=== PATIENT | female | born 1935 | race Caucasian/White ===

== ENCOUNTER 2021-03-17 12:45 | Inpatient (IN) | payer MEDICARE ==
[~2021-03-17] VITALS: Ht 157.5 cm; Wt 79.3 kg
[2021-03-17 13:15] LABS: BASOPHILS ABSOLUTE AUTO 0.07 K/mm3 (0.00-0.23); BASOPHILS PERCENT AUTO 1 % (0-2); EOSINOPHILS ABSOLUTE AUTO 0.07 K/mm3 (0.00-0.68); EOSINOPHILS PERCENT AUTO 1 % (0-6); Hematocrit 37.8 % (33.0-51.0); IMMATURE GRAN ABSOLUTE AUTO 0.04 K/mm3 (0.00-0.10); IMMATURE GRAN PERCENT AUTO 0 % (0-1); LYMPHOCYTES ABSOLUTE AUTO 0.89 K/mm3 (0.84-5.20); LYMPHOCYTES PERCENT AUTO 9 % (21-46); MONOCYTES ABSOLUTE AUTO 1.09 K/mm3 (0.16-1.47); MONOCYTES PERCENT AUTO 11 % (4-13); Mean Corpuscular HGB 21.9 pg (26.0-34.0); Mean Corpuscular HGB Conc 29.1 g/dL (31.5-36.5); Mean Corpuscular Volume 75 fL (80-100); Mean Platelet Volume 9.2 fL (9.1-12.4); NEUTROPHILS ABSOLUTE AUTO 7.47 K/mm3 (1.96-9.15); NEUTROPHILS PERCENT AUTO 78 % (41-73); Platelet Count 275 K/mm3 (150-400); RDW Coefficient Variation 15.9 % (11.7-14.2); RDW Standard Deviation 43.2 fL (35.1-46.3); Red Blood Cell Count 5.02 M/mm3 (3.80-5.20); White Blood Cell Count 9.63 K/mm3 (4.00-11.30)
[2021-03-17 13:51] LABS: Alanine Aminotransfer (ALT/SGP 24 U/L (12-78); Albumin, Blood 3.6 g/dL (3.4-5.0); Alk Phos 81 U/L (50-136); Anion Gap 7 mmol/L (6-16); Aspartate Aminotrans (AST/SGOT 23 U/L (12-37); Blood Urea Nitrogen 22 mg/dL (8-24); Bun/Creatinine Ratio 27.4 (12.0-20.0); CO2, Blood 25 mmol/L (21-32); Calcium, Blood 8.7 mg/dL (8.5-10.1); Chloride, Blood 109 mmol/L (98-108); Globulin, Blood 3.6 g/dL (2.2-4.0); Glomerular Filtration Rate >60 (60-); Glucose, Blood 120 mg/dL (70-99); Potassium, Blood 3.4 mmol/L (3.5-5.5); Sodium, Blood 141 mmol/L (136-145); Total Protein, Blood 7.2 g/dL (6.4-8.2); Troponin I 0.055 ng/mL (0.000-0.040)
[2021-03-17 15:57] LABS: Magnesium, Blood 2.4 mg/dL (1.6-2.4); Thyroid Stimulating Hormone 3.21 uIU/mL (0.360-4.800)
[2021-03-17 15:58] LABS: Source, Urine Clean Catch
[2021-03-17 16:01] LABS: Bilirubin, Urine Neg (Neg); Blood, Urine 4+ (Neg); Color, Urine Yellow (P-Yellow); Glucose Qualitative, Urine Neg (Neg); Ketones, Urine 1+ (Neg); Leukocyte Esterase, Urine 1+ (Neg); Nitrite, Urine Neg (Neg); Protein, Urine 3+ (Neg); Urobilinogen, Urine 2+ (Normal)
[2021-03-17 17:31] LABS: Appearance, Urine Hazy (Clear)
[2021-03-17 17:34] LABS: Bacteria Few /hpf; Squamous Epithelial Cells Few /hpf (Few)
[2021-03-17 17:35] LABS: Calcium Oxalate Crystals Many /hpf
[2021-03-17 17:53] LABS: SARS-Cov-2 (COVID-19) PCR, MMC NEGATIVE (NEGATIVE)
[2021-03-17 18:34] LABS: International Normalized Ratio 1.2; Prothrombin Time Results 12.8 Sec (9.7-11.5)
--- NOTE | 2021-03-17 23:25 | NUR ---
CALLED DR SANCHEZ REGARDING PT BEING VERY DISORIENTED AND PULLING ON LINES, GETTING OUT OF BED. ORDERS ENTERED IN EMAR.
--- NOTE | 2021-03-17 23:34 | NUR ---
PT WANTED TO CALL AND SPOKE TO HIM. SHE ASKED HIM TO COME AND WAS AGITATED AT HIM.
[2021-03-18 04:21] LABS: BASOPHILS ABSOLUTE AUTO 0.04 K/mm3 (0.00-0.23); BASOPHILS PERCENT AUTO 0 % (0-2); EOSINOPHILS ABSOLUTE AUTO 0.01 K/mm3 (0.00-0.68); EOSINOPHILS PERCENT AUTO 0 % (0-6); Hematocrit 37.4 % (33.0-51.0); IMMATURE GRAN ABSOLUTE AUTO 0.05 K/mm3 (0.00-0.10); IMMATURE GRAN PERCENT AUTO 1 % (0-1); LYMPHOCYTES ABSOLUTE AUTO 0.89 K/mm3 (0.84-5.20); LYMPHOCYTES PERCENT AUTO 8 % (21-46); MONOCYTES ABSOLUTE AUTO 0.94 K/mm3 (0.16-1.47); MONOCYTES PERCENT AUTO 9 % (4-13); Mean Corpuscular HGB 22.4 pg (26.0-34.0); Mean Corpuscular HGB Conc 29.4 g/dL (31.5-36.5); Mean Corpuscular Volume 76 fL (80-100); Mean Platelet Volume 9.6 fL (9.1-12.4); NEUTROPHILS ABSOLUTE AUTO 8.63 K/mm3 (1.96-9.15); NEUTROPHILS PERCENT AUTO 82 % (41-73); Platelet Count 267 K/mm3 (150-400); RDW Standard Deviation 43.8 fL (35.1-46.3); Red Blood Cell Count 4.92 M/mm3 (3.80-5.20); White Blood Cell Count 10.56 K/mm3 (4.00-11.30)
[2021-03-18 04:45] LABS: Alanine Aminotransfer (ALT/SGP 27 U/L (12-78); Albumin, Blood 3.5 g/dL (3.4-5.0); Alk Phos 84 U/L (50-136); Anion Gap 7 mmol/L (6-16); Aspartate Aminotrans (AST/SGOT 27 U/L (12-37); Bilirubin, Total 1.1 mg/dL (0.1-1.0); Blood Urea Nitrogen 24 mg/dL (8-24); Bun/Creatinine Ratio 27.6 (12.0-20.0); CO2, Blood 25 mmol/L (21-32); Calcium, Blood 8.9 mg/dL (8.5-10.1); Chloride, Blood 109 mmol/L (98-108); Creatinine, Blood 0.87 mg/dL (0.40-1.00); Globulin, Blood 3.4 g/dL (2.2-4.0); Glomerular Filtration Rate >60 (60-); Glucose, Blood 125 mg/dL (70-99); Magnesium, Blood 2.2 mg/dL (1.6-2.4); Potassium, Blood 3.3 mmol/L (3.5-5.5); Sodium, Blood 141 mmol/L (136-145); Total Protein, Blood 6.9 g/dL (6.4-8.2)
--- NOTE | 2021-03-18 06:47 | NUR ---
SHIFT SUMMARY PT IS ALERT BUT DISORIENTED. PT HAS BEEN AGITATED, CONFUSED, TRYING TO GET OUT OF BED AND TAKE OUT LINES, REFUSING CARE, DESPITE FAMILY BEING AT BEDSIDE. HEPARIN IS RINING AT THE MOMENT. PT IS ABLE TO USE BSC ON SBA. DAUGHTER AND HAVE BEEN AT BEDSIDE SINCE A LITTLE AFTER MIDNIGHT. PT HAS HAD VERY LITLLE SLEEP OF APPROX 30 MINS T/O NIGHT. FAMILY REPORTS THIS TYPE OF EPISODE PETER[[ENED BEFORE.
--- NOTE | 2021-03-18 15:00 | NUR ---
Echocardiogram completed.
--- NOTE | 2021-03-18 18:37 | NUR ---
SHIFT SUMMARY PT A&Ox2; PLEASANTLY CONFUSED DURING SHIFT. IMPULSIVE, SETTING OFF BED/CHAIR ALARM; FAMILY AT BEDSIDE T/O SHIFT AND ASSISTING WITH REDIRECTION AND ORIENTATION. PT DENIES PAIN, CHEST PAIN, SOB, NAUSEA AND DIZZINES/ SPO2 >90% ON RA T/O SHIFT. PT RECEIVING IV LASIX. ELEVATED BP, NOTIFEID DR CEJA T/O SHIFT, TRENDING DOWN WITH PRN LABATOLOL IV. PER TELE AFIB 90-100; OTHER VSS. NO OTHER ACUTE CHANGES NOTED. WILL CONTINUE TO MONITOR UNITL REPORT GIVEN TO ONCOMING RN.
[2021-03-18 20:16] LABS: Creatinine, Urine Random 11.2 mg/dL (27.00-270.00); Protein, Urine Random 5.1 mg/dL (0.0-11.9); Protein/Creat Ratio, Ur Random 0.5
[2021-03-19 04:17] LABS: BASOPHILS ABSOLUTE AUTO 0.04 K/mm3 (0.00-0.23); BASOPHILS PERCENT AUTO 0 % (0-2); EOSINOPHILS ABSOLUTE AUTO 0.02 K/mm3 (0.00-0.68); EOSINOPHILS PERCENT AUTO 0 % (0-6); Hemoglobin 10.7 g/dL (11.5-16.0); IMMATURE GRAN ABSOLUTE AUTO 0.06 K/mm3 (0.00-0.10); IMMATURE GRAN PERCENT AUTO 1 % (0-1); LYMPHOCYTES ABSOLUTE AUTO 0.99 K/mm3 (0.84-5.20); LYMPHOCYTES PERCENT AUTO 10 % (21-46); MONOCYTES ABSOLUTE AUTO 0.99 K/mm3 (0.16-1.47); MONOCYTES PERCENT AUTO 10 % (4-13); Mean Corpuscular HGB 21.6 pg (26.0-34.0); Mean Corpuscular HGB Conc 28.9 g/dL (31.5-36.5); Mean Corpuscular Volume 75 fL (80-100); Mean Platelet Volume 9.8 fL (9.1-12.4); NEUTROPHILS ABSOLUTE AUTO 8.29 K/mm3 (1.96-9.15); NEUTROPHILS PERCENT AUTO 80 % (41-73); Platelet Count 260 K/mm3 (150-400); RDW Coefficient Variation 16.1 % (11.7-14.2); RDW Standard Deviation 43.3 fL (35.1-46.3); Red Blood Cell Count 4.96 M/mm3 (3.80-5.20); White Blood Cell Count 10.39 K/mm3 (4.00-11.30)
[2021-03-19 04:32] LABS: Albumin, Blood 3.3 g/dL (3.4-5.0); Albumin/Globulin Ratio 1.1 (0.8-1.8); Bilirubin, Total 1.1 mg/dL (0.1-1.0); Bun/Creatinine Ratio 27.5 (12.0-20.0); Calcium, Blood 8.2 mg/dL (8.5-10.1); Creatinine, Blood 1.09 mg/dL (0.40-1.00); Globulin, Blood 2.9 g/dL (2.2-4.0); Potassium, Blood 3.4 mmol/L (3.5-5.5); Total Protein, Blood 6.2 g/dL (6.4-8.2)
--- NOTE | 2021-03-19 05:06 | NUR ---
SHIFT SUMMARY: PT PLEASANTLY CONFUSED THROUGHOUT NIGHT. PT COOPERATIVE WITH CARE AND FOLLOWING DIRECTIONS WHEN ASKED. PT FORGETFUL ABOUT CALL LIGHT AND FREQ GETTING OUT OF BED SETTING OFF BED ALARM. PT ABLE TO SLEEP SOME OF SHIFT. AWAKE AT 0500 AND WANTING TO ROAM AROUND ROOM. PT CURRENTLY SITTING UP IN CHAIR. POTASSIUM ORDER COMPLETE. VS WNL. PT REMAINS ON RA. A/FIB IN 80'S PER TELE. PT DENIES CP, DENIES SOB. AMBULATING WITH SBA. VOIDING IN BSC.
[2021-03-19 05:40] LABS: BASOPHILS PERCENT MAN 0 % (0-2); EOSINOPHILS PERCENT MAN 0 % (0-6); LYMPHOCYTES ABSOLUTE MAN 2.07 K/mm3 (0.84-5.20); LYMPHOCYTES PERCENT MAN 20 % (21-46); MONOCYTES PERCENT MAN 0 % (4-13); NEUTROPHILS ABSOLUTE MAN 8.31 K/mm3 (1.96-9.15); SEG NEUTROPHILS PERCENT MAN 80 % (41-73); TOTAL CELLS COUNTED 25
[2021-03-19] MEDS ORDERED: POTA20LUD PO (12:58)
[2021-03-19] MEDS ORDERED: FURO40 PO (12:59)
[2021-03-19] MEDS ORDERED: METO25 PO (13:00)
[2021-03-19] MEDS ORDERED: XARELTO15 MG PO (13:01)
[2021-03-19] MEDS ORDERED: SPIR25 PO (13:01)
[2021-03-19] MEDS ORDERED: TRAZ50 PO (13:03)
--- NOTE | 2021-03-19 16:28 | NUR ---
DISCHARGE SUMMARY PT A&Ox2; PLEASANTLY CONFUSED; CALM AND COOPERATIVE WITH CARE. PT UP TO BATHROOM WITH SBA AND WALKER. PT DENIES PAIN, CHEST PAIN, NAUSEA, SOB AND DIZZINESS T/O SHIFT. IV KCL ORDERS, CLARIFIED ORDERS FOR IV; NEW ORDER FOR KCL ELIXIR. PT RECEIVED PO POTASSIUM THSI AM, PT RECEIVING IV LASIX. ELEVATED BP THIS AM, TRENDING DOWN. OTHER VSS. NO OTHER ACUTE CHANGES NOTED. PLANS TO DISCHARGE, PT RECOMMENDING HOME HEALTH, NOTIFIED DR CEJA, NEW ORDERS FOR HOME HEALTH ON DISCHARGE. PT REQUESTING [facility]; NOTIFIED ROMELIA IN CARE MANAGEMENT. PT, SPOUSE AND DAUGHTER EDUCATED ON DISCHARGE INSTRUCTIONS, FOLLOW UP APPOINTMENTS, MEDICATIONS AND DIETARY/LIFESTYLE CHANGES. EDUCATED FAMILY ON CONGESTIVE HEART FAILURE AND PROVIDED A DAILY CHECKLIST AND LIVING WITH CHF. DAUGHTER AND SPOUSE EXPRESSED UNDERSTAND OF DISCHARGE TEACHING. PRESCRIPTIONS SEND TO [employer] IN [place] PER FAMILY REQUEST. PT LEFT WITH FAMILY AND YARN HAND[employer]ER VIA WHEELCHAIR AT 1538.
== END 2021-03-19 15:40 | disposition home or self-care (01) | DRG 280 ==
LOC: ER 12:45 → PCU 17:37
PROVIDERS: Family Medicine; Physician Assistant; ADMIT Hospitalist
DX: I11.0 Hypertensive heart disease with heart failure (principal); I21.A1 Myocardial infarction type 2; I50.31 Acute diastolic (congestive) heart failure; G93.41 Metabolic encephalopathy; F05 Delirium due to known physiological condition; I25.10 Atherosclerotic heart disease of native coronary artery without angina pectoris; E78.00 Pure hypercholesterolemia, unspecified; R44.1 Visual hallucinations; M19.90 Unspecified osteoarthritis, unspecified site; E87.6 Hypokalemia; F41.9 Anxiety disorder, unspecified; K44.9 Diaphragmatic hernia without obstruction or gangrene; R73.03 Prediabetes; Z95.1 Presence of aortocoronary bypass graft; Z90.710 Acquired absence of both cervix and uterus
CPT/HCPCS: 36415; 71045; 76770; 80053; 81001; 82570; 82947; 83036; 83735; 83880; 84100; 84156; 84443; 84484; 85025; 85610; 85730; 87086; 93005; 93010; 93306; 96125-GN; 96374; 97116; 97162; 97530; 99285-25; A9270; J0697; J1630; J1644; J1940; J3480; J7050; U0004

== ENCOUNTER 2021-05-19 01:13 | Emergency (ER) | payer MEDICARE ==
[~2021-05-19] VITALS: Ht 154.9 cm; Wt 66.2 kg
[~2021-05-19 01:13] MED LIST: FURO40 PO; METO25 PO; POTA20LUD PO; SPIR25 PO; TRAZ50 PO; XARELTO15 MG PO
[2021-05-19 02:09] LABS: Source, Urine Clean Catch
[2021-05-19 02:12] LABS: Appearance, Urine Turbid (Clear); Bilirubin, Urine Neg (Neg); Blood, Urine 5+ (Neg); Color, Urine Red (P-Yellow); Glucose Qualitative, Urine Neg (Neg); Ketones, Urine 1+ (Neg); Leukocyte Esterase, Urine 3+ (Neg); Nitrite, Urine Neg (Neg); Protein, Urine 4+ (Neg); Specific Gravity, Urine 1.015 (1.003-1.022); Urobilinogen, Urine NORM (Normal); pH, Urine 6.5 (5.0-8.0)
[2021-05-19 02:17] LABS: Red Blood Cells, Urine TNTC /hpf (0-2); White Blood Cells, Urine TNTC /hpf (0-5)
[2021-05-19 02:18] LABS: Bacteria Mod /hpf; Squamous Epithelial Cells Not Seen /hpf (Few)
[2021-05-19 03:14] LABS: Bun/Creatinine Ratio 23.4 (12.0-20.0); Calcium, Blood 8.7 mg/dL (8.5-10.1); Creatinine, Blood 0.9 mg/dL (0.40-1.00); Potassium, Blood 3.8 mmol/L (3.5-5.5)
[2021-05-19] MEDS ORDERED: CEPH500 PO (03:48)
== END 2021-05-19 04:37 | disposition home or self-care (01) ==
LOC: ER 01:13
PROVIDERS: Student in an Organized Health Care Education/Training Program
DX: N39.0 Urinary tract infection, site not specified (principal); R31.9 Hematuria, unspecified; I10 Essential (primary) hypertension; I25.2 Old myocardial infarction; Z79.899 Other long term (current) drug therapy
CPT/HCPCS: 36415; 51701; 80048; 81001; 87077; 87086; 87186; 99283-25; A9270

== ENCOUNTER 2021-09-01 12:19 | Emergency (ER) | payer MEDICARE ==
[~2021-09-01] VITALS: Ht 154.9 cm; Wt 65.8 kg
[~2021-09-01 12:19] MED LIST changes: +CEPH500 PO
[2021-09-01 14:13] LABS: Source, Urine Clean Catch
[2021-09-01 14:20] LABS: Appearance, Urine Hazy (Clear); Bilirubin, Urine Neg (Neg); Blood, Urine 5+ (Neg); Color, Urine Yellow (P-Yellow); Glucose Qualitative, Urine Neg (Neg); Ketones, Urine Neg (Neg); Leukocyte Esterase, Urine 3+ (Neg); Nitrite, Urine Neg (Neg); Protein, Urine 2+ (Neg); Specific Gravity, Urine 1.015 (1.003-1.022); Urobilinogen, Urine 2+ (Normal)
[2021-09-01 14:29] LABS: Bacteria Many /hpf; Red Blood Cells, Urine 25-50 /hpf (0-2); Squamous Epithelial Cells Few /hpf (Few)
[2021-09-01 14:30] LABS: Amorphous Light (0-Heavy); Mucus Light (0-Heavy)
[2021-09-01] MEDS ORDERED: CEPH500 PO (14:57)
== END 2021-09-01 15:27 | disposition home or self-care (01) ==
LOC: ER 12:19
PROVIDERS: Physician Assistant
DX: S93.601A Unspecified sprain of right foot, initial encounter (principal); N39.0 Urinary tract infection, site not specified; I10 Essential (primary) hypertension; Z79.899 Other long term (current) drug therapy; W01.0XXA Fall on same level from slipping, tripping and stumbling without subsequent striking against object, initial encounter
CPT/HCPCS: 73630; 81001; 87077; 87086; 87186; 99283-25; P9612

== ENCOUNTER 2021-10-31 22:37 | Inpatient (IN) | payer MEDICARE ==
[~2021-10-31] VITALS: Ht 160 cm; Wt 67.2 kg
[2021-11-01 00:37] LABS: BASOPHILS ABSOLUTE AUTO 0.06 K/mm3 (0.00-0.23); BASOPHILS PERCENT AUTO 0 % (0-2); EOSINOPHILS ABSOLUTE AUTO 0.29 K/mm3 (0.00-0.68); EOSINOPHILS PERCENT AUTO 2 % (0-6); Hematocrit 32.7 % (33.0-51.0); Hemoglobin 8.5 g/dL (11.5-16.0); IMMATURE GRAN ABSOLUTE AUTO 0.05 K/mm3 (0.00-0.10); IMMATURE GRAN PERCENT AUTO 0 % (0-1); LYMPHOCYTES ABSOLUTE AUTO 1.23 K/mm3 (0.84-5.20); LYMPHOCYTES PERCENT AUTO 9 % (21-46); MONOCYTES ABSOLUTE AUTO 1.56 K/mm3 (0.16-1.47); MONOCYTES PERCENT AUTO 12 % (4-13); Mean Corpuscular HGB 16.4 pg (26.0-34.0); Mean Corpuscular Volume 63 fL (80-100); NEUTROPHILS ABSOLUTE AUTO 10.27 K/mm3 (1.96-9.15); NEUTROPHILS PERCENT AUTO 76 % (41-73); NRBC ABSOLUTE 0.05 K/mm3 (0.00-0.02); NRBC Auto 0.4 /100 WBC (0.0-0.2); Platelet Count 318 K/mm3 (150-400); RDW Coefficient Variation 22.4 % (11.7-14.2); RDW Standard Deviation 47.5 fL (35.1-46.3); Red Blood Cell Count 5.18 M/mm3 (3.80-5.20); White Blood Cell Count 13.46 K/mm3 (4.00-11.30)
[2021-11-01 01:01] LABS: Alanine Aminotransfer (ALT/SGP 32 U/L (12-78); Albumin, Blood 3.3 g/dL (3.4-5.0); Alk Phos 85 U/L (50-136); Anion Gap 7 mmol/L (6-16); Aspartate Aminotrans (AST/SGOT 26 U/L (12-37); Bilirubin, Total 1.4 mg/dL (0.1-1.0); Blood Urea Nitrogen 28 mg/dL (8-24); Bun/Creatinine Ratio 35.2 (12.0-20.0); CO2, Blood 29 mmol/L (21-32); Calcium, Blood 8.6 mg/dL (8.5-10.1); Chloride, Blood 106 mmol/L (98-108); Globulin, Blood 3.2 g/dL (2.2-4.0); Glomerular Filtration Rate >60 (60-); Glucose, Blood 151 mg/dL (70-99); Potassium, Blood 3.2 mmol/L (3.5-5.5); Sodium, Blood 142 mmol/L (136-145); Total Protein, Blood 6.5 g/dL (6.4-8.2)
[2021-11-01 01:08] LABS: Bilirubin, Urine Neg (Neg); Blood, Urine 1+ (Neg); Glucose Qualitative, Urine Neg (Neg); Ketones, Urine Neg (Neg); Leukocyte Esterase, Urine 1+ (Neg); Nitrite, Urine Pos (Neg); Protein, Urine 2+ (Neg); Source, Urine Clean Catch; Specific Gravity, Urine 1.025 (1.003-1.022); Urobilinogen, Urine NORM (Normal)
[2021-11-01 01:10] LABS: Appearance, Urine Hazy (Clear); Color, Urine Yellow (P-Yellow)
[2021-11-01 01:20] LABS: Bacteria Many /hpf; Red Blood Cells, Urine Rare /hpf (0-2); Squamous Epithelial Cells Few /hpf (Few); White Blood Cells, Urine 0-2 /hpf (0-5)
[2021-11-01 03:45] LABS: Percent Saturation 3.5 % (15.0-50.0)
[2021-11-01 04:01] LABS: BASOPHILS ABSOLUTE AUTO 0.05 K/mm3 (0.00-0.23); BASOPHILS PERCENT AUTO 0 % (0-2); EOSINOPHILS PERCENT AUTO 2 % (0-6); Hematocrit 30.4 % (33.0-51.0); Hemoglobin 7.8 g/dL (11.5-16.0); IMMATURE GRAN ABSOLUTE AUTO 0.05 K/mm3 (0.00-0.10); IMMATURE GRAN PERCENT AUTO 0 % (0-1); LYMPHOCYTES ABSOLUTE AUTO 0.96 K/mm3 (0.84-5.20); LYMPHOCYTES PERCENT AUTO 9 % (21-46); MONOCYTES ABSOLUTE AUTO 1.14 K/mm3 (0.16-1.47); MONOCYTES PERCENT AUTO 10 % (4-13); Mean Corpuscular HGB 16.3 pg (26.0-34.0); Mean Corpuscular HGB Conc 25.7 g/dL (31.5-36.5); Mean Corpuscular Volume 64 fL (80-100); Mean Platelet Volume 9.4 fL (9.1-12.4); NEUTROPHILS ABSOLUTE AUTO 8.72 K/mm3 (1.96-9.15); NEUTROPHILS PERCENT AUTO 79 % (41-73); NRBC ABSOLUTE 0.02 K/mm3 (0.00-0.02); NRBC Auto 0.2 /100 WBC (0.0-0.2); Platelet Count 284 K/mm3 (150-400); RDW Coefficient Variation 22.3 % (11.7-14.2); RDW Standard Deviation 47.8 fL (35.1-46.3); Red Blood Cell Count 4.78 M/mm3 (3.80-5.20); White Blood Cell Count 11.12 K/mm3 (4.00-11.30)
[2021-11-01 04:21] LABS: Anion Gap 6 mmol/L (6-16); Blood Urea Nitrogen 25 mg/dL (8-24); Bun/Creatinine Ratio 33.6 (12.0-20.0); CO2, Blood 29 mmol/L (21-32); Calcium, Blood 8.3 mg/dL (8.5-10.1); Chloride, Blood 107 mmol/L (98-108); Creatinine, Blood 0.74 mg/dL (0.40-1.00); Glomerular Filtration Rate >60 (60-); Glucose, Blood 135 mg/dL (70-99); Potassium, Blood 3.5 mmol/L (3.5-5.5); Sodium, Blood 142 mmol/L (136-145)
--- NOTE | 2021-11-01 06:37 | NUR ---
SHIFT SUMMARY: PATIENT ADMITED FROM ED A&OX1, PLEASANTLY CONFUSED. POOR HISTORIAN. PATIENT COOPERATIVE WITH CARE, ASSESSMENT, LABS, AND VITALS. 0530 PATIENT ATTEMPTED TO BED EXIT, REMOVED PIV AND TELE. PATIENT ANXIOUS SCREAMING LOUDLY FROM ROOM "THEY ARE TRYING TO KILL ME PLEASE HELP ME!" ANYONE THAT ENTERED THE ROOM SHE DEMANDED THEY GET OUT. STAFF STAYED AT BEDSIDE FOR PATIENT SAFETY. SHE CONTINUED TO YELL, STRIKE AND GRAB AT STAFF THAT WERE WITHIN ARMS REACH OR TRYING TO PROVIDE CARE. PATIENTS PERSOAL CLOTHING SOILED IN BLOOD FROM REMOVAL OF PIV. CONTACTED AND NEW ORDERS OBTAINED. AFTER ADMINISTRATION ON MEDICATION PATIENT WAS ABLE TO BE REDIRECTED TO LAYING IN BED. TM.
--- NOTE | 2021-11-01 19:35 | NUR ---
PATIENT REMOVED HER IV ON HER RIGHT FOREARM. CONSULTED OF RESTRAINTS. 4 SIDE RAIL RESTRAING REQUESTED AND APPLIED. PATIENT STILL TRIED TO GET OUT OF BED, SETTING THE ALARM OFF X3. SOFT LIMB RESTRAINTS REQUESTED AROUND 11:30 AM AND APPLIED AT NOON. 2 HOUR RESTRAINT CHARTING COMPLETED AND ROUNDING CHECKS COMPLETED. PATIENT IN TOTAL PULLED OUT 3 IV'S AN HAS TRIED TO STAND UP WITH WEAKNESS AND AN UNSTEADY GAIT. PATIENT TRANFERRED TO SKEW WITHIN THE UNIT FOR CONTINOUS SUPERVISION.
--- NOTE | 2021-11-02 06:36 | NUR ---
SHIFT SUMMARY PATIENT ALERT AND ORIENTED TO SELF ONLY. MEDICATED PER EMAR FOR PAIN. NO COMPLAINTS OF SHORTNESS OF BREATH. PATIENT DID NOT SLEEP OVERNIGHT. STAYED AWAKE HAVING CONVERSATIONS WITH PEOPLE THAT WEREN'T THERE. REMAINS IN WRIST RESTRAINTS. BED IN LOWEST POSITION WITH WHEELS LOCKED AND ALARM ON. CALL LIGHT WITHIN REACH. REPORT GIVEN TO ONCOMING RN.
--- NOTE | 2021-11-02 18:02 | NUR ---
PATIENT IS AWAKE,ALERT AND CONFUSED. PATIENT HAS WRIST RESTRAINT. PATIENT WAS OFFERED TOILETING AND HYDRATION EVERY TWO HOUR. PATIENT AT BEDSIDE. NO ACUTE DISTRESS NOTED.
--- NOTE | 2021-11-03 12:39 | NUR ---
Pt is an 86 year old woman with dementia, A-fib, HTN, CAD, Hx of colon cancer, heart failure, osteoarthritis. She was brought into the ED by her with concerns of worsening dementia. He reports the patient locked herself in the bathroom, and he had to break the door to get her out. He reports noticing the patient appears to be short of breath, and has recently become fully incontinent. During our meeting today, her was at the bedside, and the patient is in soft writst restraints, does not make eye contact or verbally respond to any questions. Her Janak states he can no longer care for her at home, and is looking to place her in a [facility]sterman care facility. We discussed pt's code status, and he did change her code status to DNR. We also talked about hospice services, and he asked if he can take home the POLST to review the 2nd section (comfort care vs limited intervention) with their daughter who is a BUSINESS MANAGEMENT MANAGER. I told him "Of course". I gave him the Palliative Care office number, and asked him to call if he has any questions. I will remain available.
--- NOTE | 2021-11-03 16:58 | NUR ---
PATIENT IS AWAKE,ALERT AND CONFUSED. PATIENT IS ON WRIST AND MITTEN RESTRAINTS. PATIENT WAS OFFERED HYDRATION AND TOILETING EVERY TWO HOURS. PATIENT AT BEDSIDE. PATIENT CODE STATUS CHANGE, PURPLE BRACELET APPLIED.
--- NOTE | 2021-11-04 05:01 | NUR ---
Received patient alert and orineted to self only. She is breathing at room air. Patient did not sleep overnight. She had a full conversation whith different people so it seems. She remain on restraints. Bed in low position, code light withing reach. We di continue to monitor for any acute changes.
[2021-11-04] MEDS ORDERED: HYDCHL25 PO (12:37)
[2021-11-04] MEDS ORDERED: TOPROL XL25 MG PO (12:38)
[2021-11-04] MEDS ORDERED: HYDHCL25 PO (12:39)
--- NOTE | 2021-11-04 13:26 | NUR ---
Pt's stopped by the Palliative office this morning, and he had finished filling out the POLST. He chose comfort measures, along with choosing [facility] to eval and admit if appropriate. I was able to get the comfort medication sheet signed by Dr. Lomas, as he was already signing the POLST. Faxed to [facility], and message sent to [employer] Consultant Katie Monk to please arrange transportation for pt by 10am tomorrow, November 05, as retail loss prevention investigator will be making initial visit to pt's home.
[2021-11-05] MEDS ORDERED: VISBIOME 112.51 EACH PO (09:00)
[2021-11-05] MEDS ORDERED: MORP20L SL (09:02)
--- NOTE | 2021-11-05 09:58 | NUR ---
SUMMARY/DISCHARGE PT DISCHARGED TO HOME ON HOSPICE, SPOUSE WAITING AT HOME, PT TAKEN OUT SAFELY VIA WHEELCHAIR
[2021-11-05] MEDS ORDERED: HYDHCL25 PO (10:52)
[2021-11-05] MEDS ORDERED: METO25 PO (10:53)
== END 2021-11-05 09:58 | disposition hospice, home (50) | DRG 871 ==
LOC: ER 22:37 → MEDS 22:38
PROVIDERS: Emergency Medicine; Family Medicine; ADMIT Internal Medicine
DX: A41.51 Sepsis due to Escherichia coli [E. coli] (principal); G92.8 Other toxic encephalopathy; N39.0 Urinary tract infection, site not specified; I50.32 Chronic diastolic (congestive) heart failure; Z51.5 Encounter for palliative care; F03.90 Unspecified dementia, unspecified severity, without behavioral disturbance, psychotic disturbance, mood disturbance, and anxiety; R45.1 Restlessness and agitation; D64.9 Anemia, unspecified; E86.0 Dehydration; I48.91 Unspecified atrial fibrillation; I11.0 Hypertensive heart disease with heart failure; Z95.5 Presence of coronary angioplasty implant and graft; Z90.710 Acquired absence of both cervix and uterus; I25.2 Old myocardial infarction; Z95.1 Presence of aortocoronary bypass graft; Z86.16 Personal history of COVID-19; Z90.49 Acquired absence of other specified parts of digestive tract; Z85.038 Personal history of other malignant neoplasm of large intestine; Z79.01 Long term (current) use of anticoagulants; Z79.2 Long term (current) use of antibiotics; Z79.899 Other long term (current) drug therapy
CPT/HCPCS: 36415; 71045; 71260; 80048; 80053; 81001; 82728; 83540; 83550; 83605; 83880; 84484; 85025; 87040; 87077; 87086; 87186; 93005; 93010; 96372; 96374; 99285-25; A9270; G0378; J0696; J1650; J2916; J7040; J7050; Q9967